=== PATIENT | male | born 1945 | race Two or more races ===

== ENCOUNTER 2022-07-29 17:27 | Outpatient (CLI) | payer OTHER ==
[~2022-07-29 17:27] MED LIST: CARTIA XT240 MG PO; CIPRO500 MG PO; CLONAZEPAM2 MG PO; GRAM-O-LECI1000 MG PO; PYRIDIUM100 M1 PO; TAMS0.4C PO; ULTRACET PO; URIN D.S. TABLE1 TAB PO
== END 2022-07-29 17:31 | disposition home or self-care (01) ==
LOC: RAD 17:27
PROVIDERS: ATTEND Orthopaedic Surgery
DX: M79.641 Pain in right hand (principal); M79.644 Pain in right finger(s)